=== PATIENT | male | born 1980 | race Caucasian/White ===

== ENCOUNTER 2022-06-14 08:20 | Day surgery (SDC) | payer OTHER ==
[2022-06-07 11:42] LABS: BASOPHILS # (AUTO) 0.1 X10'3 (0-0.2); EOSINOPHILS # (AUTO) 0.2 X10'3 (0-0.9); EOSINOPHILS % (AUTO) 4.1 % (0-6); LYMPHOCYTES # (AUTO) 2.2 X10'3 (1.1-4.8); MEAN CORPUSCULAR HEMOGLOBIN 30.7 PG (27.0-31.0); MEAN CORPUSCULAR HGB CONC 34.3 g/dL (33.0-36.5); MEAN CORPUSCULAR VOLUME 89.6 FL (78-98); MEAN PLATELET VOLUME 9.4 FL (7.4-10.4); MONOCYTES # (AUTO) 0.5 X10'3 (0-0.9); NEUTROPHILS # (AUTO) 2.8 X10'3 (1.8-7.7); NEUTROPHILS % (AUTO) 47.9 % (42-75); PRE OP HEMATOCRIT 47.2 % (42.0-52.0); PRE OP HEMOGLOBIN 16.2 g/dL (14.0-17.9); PRE OP PLATELET COUNT 180 X10'3 (140-440); RED BLOOD COUNT 5.27 X10'6 (4.70-6.10); RED CELL DISTRIBUTION WIDTH 12.9 % (11.5-14.5)
[2022-06-07 11:49] LABS: PRE OP PROTIME 10.6 SECONDS (9.0-12.0)
[2022-06-07 11:54] LABS: ALBUMIN 4.3 G/DL (3.4-5.0); ALBUMIN/GLOBULIN RATIO 1.3 (1.1-1.5); ALKALINE PHOSPHATASE 63 IU/L (46-116); BLOOD UREA NITROGEN 16 MG/DL (7-18); BUN/CREATININE RATIO 14.5 (5.4-32.0); CALCIUM 9.2 MG/DL (8.5-10.1); CHLORIDE 106 MMOL/L (99-107); PRE OP ANION GAP 6 (8-16); PRE OP AST 38 U/L (10-37); PRE OP BILIRUB, TOTAL 0.8 MG/DL (0.0-1.0); PRE OP GLUCOSE 97 MG/DL (70-104); PRE OP POTASSIUM 4.2 MMOL/L (3.4-5.1); PRE OP SODIUM 141 MMOL/L (135-145); TOTAL CARBON DIOXIDE 29.1 MMOL/L (24-32); TOTAL PROTEIN 7.7 G/DL (6.4-8.2); eGFR 75 ML/MIN
[2022-06-07 12:05] LABS: PRE OP ALT 92 U/L (30-65)
[2022-06-14] VITALS (11 sets, daily range): BP systolic 91–154; BP diastolic 48–89
[~2022-06-14] VITALS: Ht 172.7 cm; Wt 92.5 kg
[~2022-06-14 08:20] MED LIST: ESOM20CA PO; ceFAZolin inj. 2,000 MG in dextrose 5%-water 100 ML IV ONE; famotidine 20mg tablet PO ONE; ringers solution, lacted 1,000 ML IV SCH
[2022-06-14] MEDS ORDERED: bacitracin 15gm ointment TP ONE (09:47)
[2022-06-14] MEDS ORDERED: BUPIVAcaine/PF 5 mg/ml 10ml ONE (09:47)
[2022-06-14] MEDS ORDERED: fentaNYL/PF 50MCG/1 ML 2ML syringe ONE (10:02)
[2022-06-14] MEDS ORDERED: midazolam 1 mg/ML 2ml injection ONE (10:02)
[2022-06-14] MEDS ORDERED: meperidine/PF 25mg/ml syringe IV PRN ×3 (10:15)
[2022-06-14] MEDS ORDERED: ringers solution, lacted 1,000 ML IV SCH (10:15)
[2022-06-14] MEDS ORDERED: hydrALAZINE 20mg/ml inj. IV PRN (10:15)
[2022-06-14] MEDS ORDERED: proCHLORperazine 10 MG/2 ml inj IV PRN (10:15)
[2022-06-14] MEDS ORDERED: morphine 4 MG/ML inj SYRINge IV PRN (10:15)
[2022-06-14] MEDS ORDERED: morphine 2 MG/ML inj. syringe IV PRN (10:15)
[2022-06-14] MEDS ORDERED: labetalol 20mg/4ml (5mg/ml) syringe IV PRN (10:15)
[2022-06-14] MEDS ORDERED: ketorolac trometh. 30mg/ml inj. IV ONE (10:15)
[2022-06-14] MEDS ORDERED: acetaminophen 1,000mg/100ml IV 100 ML IV PRN (10:15)
[2022-06-14] MEDS ORDERED: ondansetron/PF 4mg/2ml inj IV PRN (10:15)
[2022-06-14] MEDS ORDERED: morphine 10mg/ml inj. ONE (10:18)
[2022-06-14] MEDS ORDERED: HYDROcodone/acetaminophen 5mg/325mg tablet PO PRN (10:40)
[2022-06-14] MEDS ORDERED: LIDOcaine 2% (20mg/ml) 5ml vial ONE ×2 (10:45)
[2022-06-14] MEDS ORDERED: propofol inj 20 ML IV ONE (10:45)
[2022-06-14] MEDS ORDERED: ondansetron/PF 4mg/2ml inj ONE (10:45)
[2022-06-14] MEDS ORDERED: dexamethasone sod phosphate 4mg/ml inj. ONE (10:45)
--- NOTE | 2022-06-14 10:58 | NUR ---
Received from OR via [facility], accompanied by Anesthesiologist DR RODRÍGUEZ and report given by Anesthesiologist AND DIVER HELPER. PT DROWSY, DENIES PAIN. ABDOMEN RLQ W/RUBEN JONES COVERING CDI. Addendum: 06/14/22 at 1150 by Diana lFeming RN Amended: Links added.
--- NOTE | 2022-06-14 12:48 | NUR ---
PT UP AND ABLE TO AMBULATE SAFELY, VOIDED. PAIN MEDICATION GIVEN PER MD ORDERS PRIOR TO D/C HOME. D/C INSTRUCTIONS GIVEN AND GONE OVER W/PT WHO VERBALIZED UNDERSTANDING. PT D/C TO HOME VIA W/C TO PRIVATE VEHICLE W/O INCIDENT. Addendum: 06/14/22 at 1321 by Diana Fleming RN Amended: Links added.
== END 2022-06-14 12:48 | disposition home or self-care (01) ==
LOC: PAS 08:20
PROVIDERS: ATTEND Surgery
DX: K40.90 Unilateral inguinal hernia, without obstruction or gangrene, not specified as recurrent (principal); Z79.899 Other long term (current) drug therapy; Z98.890 Other specified postprocedural states; Z79.01 Long term (current) use of anticoagulants; Z98.52 Vasectomy status; Z87.442 Personal history of urinary calculi
CPT/HCPCS: 36415; 49505; 80053; 82948; 85025; 85610; 85730; C1781; J0131; J0690; J1100; J1885; J2175; J2250; J2274; J2405; J2704; J3010; J3490; J7030; J7060; J7120; Z7506; Z7508; Z7512; A4215; A4618; A6449; A7000